=== PATIENT | female | born 1965 | race Two or more races ===

== ENCOUNTER 2020-10-26 15:43 | Emergency (ER) | payer MEDICAID ==
[~2020-10-26] VITALS: Ht 162.6 cm; Wt 62.3 kg
[2020-10-26 16:16] VITALS: BP 167/95
[2020-10-26] MEDS ORDERED: ondansetron 4mg rapidly disintigrating tab PO ONE (17:30)
[2020-10-26] MEDS ORDERED: HYDROcodone/acetaminophen 10/325mg tab PO ONE (17:30)
[2020-10-26] MEDS ORDERED: LIDOcaine 1% W/epiNEPHrine 1:200,000 10ml vial IJ ONE (17:30)
--- NOTE | 2020-10-26 17:38 | NUR ---
ICE APPLIED TO LEFT HAND AND WRIST. HAND AND WRIST RED AND SWOLLEN, PULSE PALPABLE
[2020-10-26] MEDS ORDERED: HYDR-3965 PO (18:33)
== END 2020-10-26 18:46 | disposition home or self-care (01) ==
LOC: ER 15:44 → EDBD 15:44 → ER 18:46
DX: S52.502A Unspecified fracture of the lower end of left radius, initial encounter for closed fracture (principal); S52.612A Displaced fracture of left ulna styloid process, initial encounter for closed fracture; V19.9XXA Pedal cyclist (driver) (passenger) injured in unspecified traffic accident, initial encounter; Y93.89 Activity, other specified; Y92.89 Other specified places as the place of occurrence of the external cause; Y99.8 Other external cause status
CPT/HCPCS: 25605; 73100; 73110; 99284